=== PATIENT | male | born 1960 | race Hispanic/Latino ===

== ENCOUNTER 2019-01-02 22:16 | Observation (INO) | payer OTHER ==
[2019-01-02] MEDS ORDERED: Azithromycin 500 MG in Sodium Chloride 0.9% 250 ML IVPB STA (23:41)
--- NOTE | 2019-01-03 00:28 | ED PDOC ---
HPI: General Adult Time Seen by Provider: 01/02/19 22:46 Chief Complaint (Nursing): Chest Pain Chief Complaint (Provider): cough, fever and malaise History Per: Patient History/Exam Limitations: no limitations Onset/Duration Of Symptoms: Days (one week) Current Symptoms Are (Timing): Still Present Additional Complaint(s): 58 year old male with history of dyslipidemia and diabetes presents to the ED for an evaluation of cough, fever and malaise onset for one week. He reports the cough is productive of yellow phlegm and sometimes has rattle in his chest. Patient was evaluated at [facility] (located in [place], [place]) where he was diagnosed with pneumonia including full workup, x-ray and labs. However, patient signed out against medical advice due to bed hold. Otherwise, patient denies vomiting diarrhea, leg swelling or hemoptysis. PMD: Abner Medina Past Medical History Reviewed: Historical Data, Nursing Documentation, Vital Signs Vital Signs: Last Vital Signs Temp 99.2 F 01/02/19 22:27 Pulse 88 01/02/19 22:27 Resp 18 01/02/19 22:27 BP 143/79 01/02/19 22:27 Pulse Ox 98 01/02/19 22:27 - Medical History PMH: Diabetes Other PMH: dyslipidemia - Surgical History Other surgeries: gastric bypass - Family History Family History: States: Unknown Family Hx - Allergies Allergies/Adverse Reactions: Allergies Allergy/AdvReac Type Severity Reaction Status Date / Time No Known Allergies Allergy Verified 01/02/19 22:27 Review of Systems ROS Statement: Except As Marked, All Systems Reviewed And Found Negative Constitutional: Positive for: Fever, Malaise Respiratory: Positive for: Cough (yellow phlegm). Negative for: Other (hem optysis) Gastrointestinal: Negative for: Vomiting, Diarrhea Musculoskeletal: Negative for: Other (leg swelling) Physical Exam - Reviewed Nursing Documentation Reviewed: Yes Vital Signs Reviewed: Yes - Physical Exam Appears: Positive for: Well (aroused ), Non-toxic, No Acute Distress Head Exam: Positive for: ATRAUMATIC, NORMAL INSPECTION, NORMOCEPHALIC Skin: Positive for: Normal Color, Warm, Dry Eye Exam: Positive for: EOMI, Normal appearance, PERRL ENT: Positive for: Normal ENT Inspection Neck: Positive for: Normal, Painless ROM, Supple. Negative for: Decreased ROM Cardiovascular/Chest: Positive for: Regular Rate, Rhythm. Negative for: Murmur Respiratory: Positive for: Crackles (bibasilar) Gastrointestinal/Abdominal: Positive for: Normal Exam, Soft. Negative for: Tenderness Back: Positive for: Normal Inspection. Negative for: L CVA Tenderness, R CVA Tenderness Extremity: Positive for: Normal ROM. Negative for: Tenderness, Pedal Edema, Deformity Neurological/Psych: Positive for: Awake, Alert, Normal Tone, Oriented (x3) - Laboratory Results Result Diagrams: 01/03/19 00:00 01/03/19 00:00 - ECG O2 Sat by Pulse Oximetry: 98 (RA) Pulse Ox Interpretation: Normal Medical Decision Making Medical Decision Making: Time: 2231 Impression: 58 year old male presents with pneumonia Plan: EKG CMP Lact acid, plasma CBC w/ Differential Chest two views [RAD] Glucose, POC Rocephin 1gm Sodium Chloride 0.9% 100ml Zithomax 500mg Sodium Chloride 0.9% 250ml Blood culture Heplock insertion Accucheck Influenza A b Reevaluation [address] Warner for admission. 0131 Patient's serology is negative for flu a/b. Scribe Attestation: Documented by David Rosenberg, acting as a scribe for Negrito Helton MD Provider Scribe Attestation: All medical record entries made by the Scribe were at my direction and per sonally dictated by me. I have reviewed the chart and agree that the record accurately reflects my personal performance of the history, physical exam, medical decision making, and the department course for this patient. I have also personally directed, reviewed, and agree with the discharge instructions and disposition. Disposition - Clinical Impression Clinical Impression: Pneumonia - Disposition Disposition Time: 23:40 Condition: FAIR - Pt Status Changed To: Hospital Disposition Of: Inpatient - Admit Certification Admit to Inpatient:: After my assessment, the patient will require hospitalization for at least two midnights. This is because of the severity of symptoms shown, intensity of services needed, and/or the medical risk in this patient being treated as an outpatient.
[2019-01-03 00:36] LABS: BASO % 0.4 % (0.0-2.0); EOS % 0.3 % (0.0-4.0); HEMOGLOBIN 13.5 g/dL (12.0-18.0); LYMPH # 0.5 K/uL (1.0-4.3); LYMPH % 7.5 % (20.0-40.0); MEAN CELL VOLUME 93.1 fl (80.0-94.0); MEAN CORPUSCULAR HEMOGLOBIN 31.1 pg (27.0-31.0); MEAN CORPUSCULAR HGB CONC 33.4 g/dL (33.0-37.0); MEAN PLATELET VOLUME 8.5 fl (7.2-11.7); MONO # 0.4 K/uL (0.0-0.8); MONO % 5.1 % (0.0-10.0); NEUT # 6.3 K/uL (1.8-7.0); NEUT % 86.7 % (50.0-75.0); PLATELET COUNT 182 K/uL (130-400); RBC 4.32 Mil/uL (4.40-5.90); RED CELL DISTRIBUTION WIDTH 13.4 % (11.5-14.5); WHITE BLOOD COUNT 7.3 K/uL (4.8-10.8)
[2019-01-03 00:45] LABS: ALB/GLOB RATIO 1.3 (1.0-2.1); ALBUMIN 4.2 g/dL (3.5-5.0); ALT/SGPT 32 U/L (21-72); AST/SGOT 85 U/L (17-59); BLOOD UREA NITROGEN 18 mg/dl (9-20); GFR NON-AFRICAN AMERICAN > 60
[2019-01-03] MEDS ORDERED: Azithromycin 500 MG IV IVPB ONE (01:37)
[2019-01-03 02:22] LABS: LYMPHOCYTE 9 % (20-50); MONOCYTE 3 % (0-10); NEUTROPHIL 88 % (42-75); PLATELET ESTIMATE NORMAL (NORMAL); TOTAL CELLS COUNTED 100
--- NOTE | 2019-01-03 08:58 | CARD ---
APPROVED REPORT Date of service: 01/02/2019 EKG Measurement Heart [id number] <Conclusion> Normal sinus rhythm Rightward axis Borderline ECG
[2019-01-03] MEDS ORDERED: Azithromycin 500 MG in Sodium Chloride 0.9% 250 ML IVPB SCH (09:45)
[2019-01-03] MEDS: Insulin Lispro (humaLOG) 100 Units/ml Inj SC SCH ×3 (12:25→22:22)
[2019-01-03 12:31] VITALS: BMI 28.3
--- NOTE | 2019-01-03 15:20 | RAD ---
Date of service: 01/02/2019 HISTORY: Cough. COMPARISON: No prior. TECHNIQUE: Chest PA and lateral FINDINGS: LUNGS: Perihilar/right lower lobe infiltrate. Similar more diffuse findings identified left perihilar region, left lower lobe. Etiology/acuity unknown. There are no comparison studies. PLEURA: No significant pleural effusion identified. No pneumothorax apparent. CARDIOVASCULAR: No aortic atherosclerotic calcification present. Normal cardiac size. No pulmonary vascular congestion. OSSEOUS STRUCTURES: No significant abnormalities. VISUALIZED UPPER ABDOMEN: Normal. OTHER FINDINGS: None. IMPRESSION: Bilateral perihilar-lower lobe infiltrates.
[2019-01-04 08:28] VITALS: RESP 18
[2019-01-04] MEDS: Insulin Lispro (humaLOG) 100 Units/ml Inj SC SCH ×2 (08:34→12:14)
[2019-01-04] MEDS ORDERED: Azithromycin 500 MG in Sodium Chloride 0.9% 250 ML IVPB SCH (09:00)
[2019-01-04 10:47] LABS: ABG ALLEN TEST YES; ARTERIAL BLOOD GAS HEMOGLOBIN 13.3 g/dL (11.7-17.4); ARTERIAL BLOOD GAS O2 CAPACITY 18.7 mL/dL (16-24); ARTERIAL BLOOD GAS O2 CONTENT 17.8 ML/dL (15-23); ARTERIAL BLOOD GAS O2 SAT 95.4 % (95-98); ARTERIAL BLOOD GAS PCO2 35 mm/Hg (35-45); ARTERIAL BLOOD GAS PH 7.48 (7.35-7.45); ARTERIAL BLOOD GAS PO2 80 mm/Hg (80-100); ARTERIAL BLOOD GAS TCO2 27.2 mmol/L (22-28)
[2019-01-04 11:18] LABS: HEMOGLOBIN 13.9 g/dL (12.0-18.0); MEAN CELL VOLUME 92.6 fl (80.0-94.0); MEAN CORPUSCULAR HEMOGLOBIN 31.3 pg (27.0-31.0); MEAN CORPUSCULAR HGB CONC 33.8 g/dL (33.0-37.0); RBC 4.44 Mil/uL (4.40-5.90); RED CELL DISTRIBUTION WIDTH 13.6 % (11.5-14.5); WHITE BLOOD COUNT 5.1 K/uL (4.8-10.8)
[2019-01-04 12:04] LABS: BLOOD UREA NITROGEN 18 mg/dl (9-20); CALCIUM 10.3 mg/dL (8.4-10.2); GFR NON-AFRICAN AMERICAN > 60
[2019-01-04 12:20] VITALS: BP 128/85; PULSE 75; TEMP 97.5; O2SAT 98
--- NOTE | 2019-01-05 08:13 | CP.PCM.HP ---
History of Present Illness - History of Present Illness History of Present Illness: This is a 58 y/o male with hx of DM 2 and hyperlipidemia was admitted last night through the ER for bilateral pneumonia. He was recently discharged form [facility] against medical advice. Claims that he has been feeling very weak with cough and low grade fever f in the past week. He works as a flatbed truck driver. He does not smoke. He had low grade fever initially at the ER . CXR showed bilateral perihilar lower lobe infiltrates. Medical Hx DM 2 Hyperlipidemia recent gastric bypass Currently on Metformin januvia and glipizide. Present on Admission - Present on Admission Any Indicators Present on Admission: No History of DVT/PE: No History of Uncontrolled Diabetes: Yes Urinary Catheter: No Decubitus Ulcer Present: No Review of Systems - Respiratory Respiratory: Cough Past Patient History - Past Medical History & Family History Past Medical History?: Yes - Past Social History Smoking Status: Never Smoked - CARDIAC Hx Cardiac Disorders: Yes Hx Hypercholesterolemia: Yes - PULMONARY Hx Respiratory Disorders: No - NEUROLOGICAL Hx Neurological Disorder: No - HEENT Hx HEENT Problems: No - RENAL Hx Chronic Kidney Disease: No - ENDOCRINE/METABOLIC Hx Endocrine Disorders: Yes Hx Diabetes Mellitus Type 2: Yes (5-6 YRS AGO) - HEMATOLOGICAL/ONCOLOGICAL Hx Blood Disorders: No Hx Human Immunodeficiency Virus (HIV): No - INTEGUMENTARY Hx Dermatological Problems: No - MUSCULOSKELETAL/RHEUMATOLOGICAL Hx Musculoskeletal Disorders: No Hx Falls: No - GASTROINTESTINAL Hx Gastrointestinal Disorders: No - GENITOURINARY/GYNECOLOGICAL Hx Genitourinary Disorders: No - PSYCHIATRIC Hx Psychophysiologic Disorder: No Hx Substance Use: No - SURGICAL HISTORY Hx Surgeries: Yes Other/Comment: GASTRIC BY PASS 2 YRS AGO - ANESTHESIA Hx Anesthesia: Yes Hx Anesthesia Reactions: No Hx Malignant Hyperthermia: No Has any member of the family had a problem w/ anesthesia?: No Meds Home Medications: Home Medication List Medication Instructions Recorded Confirmed Type MetFORMIN [glucoPHAGE] 1,000 mg PO BIDWM tab 01/03/19 Rx Amoxicillin/Clavulanate [Augmentin 1 tab PO BID #14 tab 01/04/19 Rx 875 MG-125 MG] Allergies/Adverse Reactions: Allergies Allergy/AdvReac Type Severity Reaction Status Date / Time No Known Allergies Allergy Verified 01/02/19 22:27 Physical Exam - Head Exam Head Exam: NORMAL INSPECTION - Eye Exam Eye Exam: Normal appearance - Respiratory Exam Respiratory Exam: Decreased Breath Sounds - Cardiovascular Exam Cardiovascular Exam: REGULAR RHYTHM - GI/Abdominal Exam GI & Abdominal Exam: Normal Bowel Sounds - Neurological Exam Neurological exam: CN II-XII Intact - Psychiatric Exam Psychiatric exam: Normal Mood Results - Vital Signs Recent Vital Signs: Last Vital Signs Temp 97.5 F L 01/04/19 12:20 Pulse 75 01/04/19 12:20 Resp 18 01/04/19 12:20 BP 128/85 01/04/19 12:20 Pulse Ox 98 01/04/19 12:20 - Labs Result Diagrams: 01/04/19 10:40 01/04/19 10:40 Labs: Laboratory Results - last 24 hr 01/04/19 01/04/19 01/04/19 05:12 09:51 10:40 WBC 5.1 RBC 4.44 Hgb 13.9 Hct 41.1 MCV 92.6 MCH 31.3 H MCHC 33.8 RDW 13.6 Plt Count 203 pCO2 35 pO2 80 HCO3 27.0 ABG pH 7.48 H ABG Total CO2 27.2 ABG O2 Saturation 95.4 ABG O2 Content 17.8 ABG Base Excess 2.8 ABG Hemoglobin 13.3 ABG Carboxyhemoglobin 0 L POC ABG HHb (Measured) 4.6 ABG Methemoglobin 0.7 ABG O2 Capacity 18.7 Juan Test Yes A-a O2 Difference 26.0 Hgb O2 Saturation 94.7 L FiO2 21.0 Sodium Potassium Chloride Carbon Dioxide Anion Gap BUN Creatinine Est GFR ( Amer) Est GFR (Non-Af Amer) POC Glucose (mg/dL) 274 H Random Glucose Calcium Ur L.pneumophila Ag 01/04/19 01/04/19 01/04/19 10:40 11:11 14:00 WBC RBC Hgb Hct MCV MCH MCHC RDW Plt Count pCO2 pO2 HCO3 ABG pH ABG Total CO2 ABG O2 Saturation ABG O2 Content ABG Base Excess ABG Hemoglobin ABG Carboxyhemoglobin POC ABG HHb (Measured) ABG Methemoglobin ABG O2 Capacity Juan Test A-a O2 Difference Hgb O2 Saturation FiO2 Sodium 139 Potassium 3.9 Chloride 100 Carbon Dioxide 28 Anion Gap 15 BUN 18 Creatinine 1.0 Est GFR ( Amer) > 60 Est GFR (Non-Af Amer) > 60 POC Glucose (mg/dL) 164 H Random Glucose 156 H Calcium 10.3 H Ur L.pneumophila Ag Negative Assessment & Plan (1) Pneumonia Status: Acute (2) Diabetes mellitus type 2 in obese Status: Acute (3) Hyperlipidemia Status: Acute - Assessment and Plan (Free Text) Plan: start IV antibiotics Metformin 1000 bid januvia start SGLT2 inh in the outpatient tylenol cough meds.
[2019-01-05 19:18] LABS: COLD AGGLUTININ NEGATIVE (NEGATIVE)
--- NOTE | 2019-01-06 00:36 | CP.PCM.DIS ---
Provider - Provider Date of Admission: 01/02/19 23:43 Attending physician: Abner Medina MD Time Spent in preparation of Discharge (in minutes): 30 Hospital Course - Lab Results Lab Results: Micro Results 01/03/19 00:01 Blood-Venous Blood Culture - Preliminary NO GROWTH AFTER 3 DAYS Most Recent Lab Values WBC 5.1 K/uL (4.8-10.8) 01/04/19 10:40 RBC 4.44 Mil/uL (4.40-5.90) 01/04/19 10:40 Hgb 13.9 g/dL (12.0-18.0) 01/04/19 10:40 Hct 41.1 % (35.0-51.0) 01/04/19 10:40 MCV 92.6 fl (80.0-94.0) 01/04/19 10:40 MCH 31.3 pg (27.0-31.0) H 01/04/19 10:40 MCHC 33.8 g/dL (33.0-37.0) 01/04/19 10:40 RDW 13.6 % (11.5-14.5) 01/04/19 10:40 Plt Count 203 K/uL (130-400) 01/04/19 10:40 MPV 8.5 fl (7.2-11.7) 01/03/19 00:00 Neut % (Auto) 86.7 % (50.0-75.0) H 01/03/19 00:00 Lymph % (Auto) 7.5 % (20.0-40.0) L 01/03/19 00:00 [place] % (Auto) 5.1 % (0.0-10.0) 01/03/19 00:00 Eos % (Auto) 0.3 % (0.0-4.0) 01/03/19 00:00 Baso % (Auto) 0.4 % (0.0-2.0) 01/03/19 00:00 Neut # (Auto) 6.3 K/uL (1.8-7.0) 01/03/19 00:00 Lymph # (Auto) 0.5 K/uL (1.0-4.3) L 01/03/19 00:00 [place] # (Auto) 0.4 K/uL (0.0-0.8) 01/03/19 00:00 Eos # (Auto) 0.0 K/uL (0.0-0.7) 01/03/19 00:00 Baso # (Auto) 0.0 K/uL (0.0-0.2) 01/03/19 00:00 Neutrophils % (Manual) 88 % (42-75) H 01/03/19 00:00 Lymphocytes % (Manual) 9 % (20-50) L 01/03/19 00:00 Monocytes % (Manual) 3 % (0-10) 01/03/19 00:00 Platelet Estimate Normal (NORMAL) 01/03/19 00:00 RBC Morphology Normal (NORMAL) 01/03/19 00:00 pCO2 35 mm/Hg (35-45) 01/04/19 09:51 pO2 80 mm/Hg (80-100) 01/04/19 09:51 HCO3 27.0 mmol/L (21-28) 01/04/19 09:51 ABG pH 7.48 (7.35-7.45) H 01/04/19 09:51 ABG Total CO2 27.2 mmol/L (22-28) 01/04/19 09:51 ABG O2 Saturation 95.4 % (95-98) 01/04/19 09:51 ABG O2 Content 17.8 ML/dL (15-23) 01/04/19 09:51 ABG Base Excess 2.8 mmol/L (-2.0-3.0) 01/04/19 09:51 ABG Hemoglobin 13.3 g/dL (11.7-17.4) 01/04/19 09:51 ABG Carboxyhemoglobin 0 % (0.5-1.5) L 01/04/19 09:51 POC ABG HHb (Measured) 4.6 % (0.0-5.0) 01/04/19 09:51 ABG Methemoglobin 0.7 % (0.0-3.0) 01/04/19 09:51 ABG O2 Capacity 18.7 mL/dL (16-24) 01/04/19 09:51 Juan Test Yes 01/04/19 09:51 A-a O2 Difference 26.0 mm/Hg 01/04/19 09:51 Hgb O2 Saturation 94.7 % (95.0-98.0) L 01/04/19 09:51 FiO2 21.0 % 01/04/19 09:51 Sodium 139 mmol/l (132-148) 01/04/19 10:40 Potassium 3.9 MMOL/L (3.6-5.0) 01/04/19 10:40 Chloride 100 mmol/L (98-107) 01/04/19 10:40 Carbon Dioxide 28 mmol/L (22-30) 01/04/19 10:40 Anion Gap 15 (10-20) 01/04/19 10:40 BUN 18 mg/dl (9-20) 01/04/19 10:40 Creatinine 1.0 mg/dl (0.8-1.5) 01/04/19 10:40 Est GFR ( Amer) > 60 01/04/19 10:40 Est GFR (Non-Af Amer) > 60 01/04/19 10:40 POC Glucose (mg/dL) 164 mg/dL (65-110) H 01/04/19 11:11 Random Glucose 156 mg/dL (75-110) H 01/04/19 10:40 Hemoglobin A1c 8.1 % (4.2-6.5) H 01/03/19 16:32 Lactic Acid 1.5 mmol/L (0.7-2.1) 01/03/19 00:00 Calcium 10.3 mg/dL (8.4-10.2) H 01/04/19 10:40 Total Bilirubin 0.6 mg/dl (0.2-1.3) 01/03/19 00:00 AST 85 U/L (17-59) H 01/03/19 00:00 ALT 32 U/L (21-72) 01/03/19 00:00 Alkaline Phosphatase 43 U/L (38-126) 01/03/19 00:00 Total Protein 7.4 G/DL (6.3-8.2) 01/03/19 00:00 Albumin 4.2 g/dL (3.5-5.0) 01/03/19 00:00 Globulin 3.2 gm/dL (2.2-3.9) 01/03/19 00:00 Albumin/Globulin Ratio 1.3 (1.0-2.1) 01/03/19 00:00 Cold Agglutinins Negative (NEGATIVE) 01/04/19 10:40 Influenza Typ A,B (EIA) Negative for flu a/b (NEGATIVE) 01/03/19 00:00 Ur L.pneumophila Ag Negative (NEGATIVE) 01/04/19 14:00 - Hospital Course Hospital Course: Pt was admitted or pneumonia. He was treated for antibiotics, and his respiratory status quickly improved. He was discharged home on antibiotics, and he will follow up with his primary care provider ([facility]). Discharge Exam - Head Exam Head Exam: NORMAL INSPECTION - Eye Exam Eye Exam: EOMI, Normal appearance, PERRL Pupil Exam: NORMAL ACCOMODATION, PERRL - ENT Exam ENT Exam: Mucous Membranes Moist - Neck Exam Neck exam: Full Rom - Respiratory Exam Respiratory Exam: Decreased Breath Sounds, Rales, NORMAL BREATHING PATTERN - Cardiovascular Exam Cardiovascular Exam: REGULAR RHYTHM, +S1, +S2 - GI/Abdominal Exam GI & Abdominal Exam: Normal Bowel Sounds, Unremarkable - Extremities Exam Extremities exam: full ROM - Back Exam Back exam: NORMAL INSPECTION - Neurological Exam Neurological exam: Alert, CN II-XII Intact, Normal Gait, Oriented x3 - Psychiatric Exam Psychiatric exam: Normal Affect, Normal Mood - Skin Skin Exam: Dry, Intact, Normal Color, Warm Discharge Plan - Discharge Medications Prescriptions: Amoxicillin/Clavulanate [Augmentin 875 MG-125 MG] 1 tab PO BID #14 tab - Follow Up Plan Condition: FAIR Disposition: HOME/ ROUTINE Instructions: Pneumonia, Adult (DC) Additional Instructions: follow up appt with on wednesday01/10/19 at 1:00pm Referrals: Jules Warner MD [Staff Provider] -
== END 2019-01-04 14:03 | disposition home or self-care (01) ==
LOC: EDBD 22:16 → H.ER 22:16 → H.ERHOLD 23:43 → INTOOBSV 23:43 → H.TEL 01-03 06:57
PROVIDERS: ADMIT Family Medicine; ATTEND Family Medicine
DX: J18.9 Pneumonia, unspecified organism (principal); Z98.84 Bariatric surgery status; E11.9 Type 2 diabetes mellitus without complications; E78.5 Hyperlipidemia, unspecified; E78.00 Pure hypercholesterolemia, unspecified; Z79.84 Long term (current) use of oral hypoglycemic drugs
CPT/HCPCS: 36415; 71046; 80048; 80053; 82803; 82948; 83036; 83605; 85025; 85027; 86738; 87040; 87116; 87449; 87804; 93005; 96365; 99285; G0378; J0456; J0696